=== PATIENT | male | born 1970 | race Caucasian/White ===

== ENCOUNTER 2017-01-10 03:49 | Observation (INO) | payer BC ==
[~2017-01-10] VITALS: Ht 182.9 cm; Wt 99.1 kg
[2017-01-10 05:23] LABS: CHLORIDE 100 mEq/L (99-109); POTASSIUM 3.7 mEq/L (3.7-5.4); SODIUM 139 mEq/L (136-147)
[2017-01-10 05:24] LABS: GLUCOSE 117 mg/dL (70-99)
[2017-01-10 05:26] LABS: ANION GAP 10 MEQ/L (2-14)
[2017-01-10 05:28] LABS: GFR ESTIMATE (CALCULATED) 58 mL/min/
[2017-01-10 05:29] LABS: UREA NITROGEN (BUN) 21 mg/dL (9-23)
[2017-01-10 05:31] LABS: TROP-I INTERPRETATION NEGATIVE; TROPONIN-I < 0.01 ng/mL (0.0-0.30)
[2017-01-10 05:33] LABS: HEMATOCRIT 43.3 % (38.0-50.0); MCH 28.8 PG (29.0-34.0); MCHC 33.5 G/DL (30.0-36.0); MCV 85.9 FL (86-99); PLATELET COUNT 308 K/uL (156-360); RBC DIS.WIDTH-CV 12.4 % (11.8-14.6); RBC DIS.WIDTH-SD 39.1 % (39-53); RED BLOOD COUNT 5.04 M/uL (4.00-5.50); WHITE BLOOD COUNT 9.4 K/uL (4.1-10.2)
[2017-01-10] MEDS ORDERED: PRAVACHOL20 MG PO (06:28)
[2017-01-10] MEDS ORDERED: MONTELUKAST SOD10 MG PO (06:30)
[2017-01-10] MEDS ORDERED: AMLODIPINE BESYL5 MG PO (06:30)
[2017-01-10] MEDS ORDERED: OMEPRAZOLE40 M1 PO (06:30)
[2017-01-10 06:31] LABS: ADD MIUA? NO; BILIRUBIN NEGATIVE; BLOOD NEGATIVE; COLOR YELLOW ((YELLOW)); GLUCOSE (STRIP) NEGATIVE; KETONES NEGATIVE; LEUKOCYTES NEGATIVE; NITRITE NEGATIVE; PROTEIN (STRIP) NEGATIVE; SPECIFIC GRAVITY 1.015 (1.000-1.030); UROBILINOGEN 0.2 MG/DL (0.2-1.0)
[2017-01-10] MEDS ORDERED: NASONEX17 GM BOTH NARES (06:31)
[2017-01-10] MEDS ORDERED: QUINAPRIL-HCTZ1 EAC2 PO (06:31)
[2017-01-10 07:06] LABS: ALKALINE PHOSPHATASE 52 IU/L (3-129); LIPASE 27 U/L (1.0-51.0); SAMPLE HEMOLYSIS CHECK 0; SAMPLE ICTERIC CHECK 0; SAMPLE LIPEMIA CHECK 0; TOTAL BILIRUBIN 0.4 MG/DL (0.0-1.0)
[2017-01-10 08:15] LABS: D-DIMER ELISA < 150.00 ng/mLDDU (<230)
[2017-01-10 09:03] VITALS: BP 139/89
[2017-01-10 09:37] LABS: UCUL ADDED? NO
[2017-01-10 11:32] VITALS: BP 127/87
[2017-01-10 12:42] LABS: TROP-I INTERPRETATION NEGATIVE; TROPONIN-I < 0.01 ng/mL (0.0-0.30)
[2017-01-10 16:00] VITALS: BP 137/88
[2017-01-10 18:17] LABS: TROP-I INTERPRETATION NEGATIVE; TROPONIN-I 0.01 ng/mL (0.0-0.30)
[2017-01-10 20:29] VITALS: BP 125/78
[2017-01-11] VITALS: BP 132/74
[2017-01-11 01:29] LABS: TROP-I INTERPRETATION NEGATIVE; TROPONIN-I < 0.01 ng/mL (0.0-0.30)
[2017-01-11 04:42] VITALS: BP 122/79
[2017-01-11 07:25] VITALS: BP 124/81
[2017-01-11] MEDS ORDERED: AMLODIPINE BESY10 MG PO (07:37)
[2017-01-11] MEDS ORDERED: LOPRESSOR25 MG PO (07:37)
[2017-01-11] MEDS ORDERED: ASPIR-LOW81 MG PO (07:37)
[2017-01-11 09:40] LABS: ANION GAP 11 MEQ/L (2-14); CHLORIDE 102 MEQ/L (99-109); GFR ESTIMATE (CALCULATED) > 59 mL/min/; GLUCOSE 101 mg/dL (70-99); SAMPLE HEMOLYSIS CHECK 0; SAMPLE ICTERIC CHECK 0; SAMPLE LIPEMIA CHECK 0; SODIUM 138 MEQ/L (136-147); UREA NITROGEN (BUN) 18 mg/dL (9-23)
[2017-01-11 09:41] LABS: POTASSIUM 4.7 MEQ/L (3.7-5.4)
[2017-01-11 12:05] VITALS: BP 123/79
== END 2017-01-11 14:09 | disposition home or self-care (01) ==
LOC: EME 03:49 → EDOF 07:48 → 5WEST 07:48 → EDOF 07:48 → ENRESERV 07:57 → 5WEST 08:39
PROVIDERS: Emergency Medicine; Hospitalist
DX: R07.89 Other chest pain (principal); I10 Essential (primary) hypertension; E78.5 Hyperlipidemia, unspecified; Z87.891 Personal history of nicotine dependence; G47.33 Obstructive sleep apnea (adult) (pediatric); Z88.0 Allergy status to penicillin
CPT/HCPCS: 71020; 80048; 80076; 81003; 83690; 84484; 85027; 85379; 93005; 99281; 99284; G0378; J1650